=== PATIENT | male | born 1955 | race African-American/Black ===

== ENCOUNTER 2024-12-22 14:10 | Emergency (ER) | payer MEDICARE ==
[~2024-12-22] VITALS: Ht 172.7 cm; Wt 82.0 kg
[~2024-12-22 14:10] MED LIST: LEVE-20 MT; PANT20TA17 MT
[2024-12-22 14:16] VITALS: TEMP 36.8; O2SAT 99
[2024-12-22 22:44] VITALS: BP 150/80; PULSE 87; RESP 18; O2SAT 98
== END 2024-12-22 22:48 | disposition home or self-care (01) ==
LOC: ER 14:10
DX: S06.5XAA Traumatic subdural hemorrhage with loss of consciousness status unknown, initial encounter (principal); Z79.899 Other long term (current) drug therapy; X58.XXXA Exposure to other specified factors, initial encounter; Y93.89 Activity, other specified; Y92.89 Other specified places as the place of occurrence of the external cause; Y99.8 Other external cause status
CPT/HCPCS: 99284